=== PATIENT | male | born 1970 | race Hispanic/Latino ===

== ENCOUNTER 2016-12-17 17:36 | Emergency (ER) | payer OTHER ==
[~2016-12-17] VITALS: Ht 175.3 cm; Wt 90.5 kg
[2016-12-17 17:51] VITALS: BP 120/75; PULSE 81; RESP 18; O2SAT 94
--- NOTE | 2016-12-17 18:57 | ED.REPORT ---
HPI-Eye Problem Date of Service Dec 17, 2016 ED Provider: Dr. Hood Pt is a 46 year old male with a hx of left eye surgery 3 days ago as preparation for a prosthetic eye presenting to the ED complaining of pain and bleeding from his left eye. Pt has a pressure dressing on his left eye. He has an appointment at [facility] in 3 days. He spoke to [facility] today and they advised the pt to continue taking his medication and to come in to the ER for a wound redressing. Nursing Notes Stated Complaint: LEFT EYE BLEEDING, HAD SURGERY 12/15/15 Chief Complaint: Eye Nursing Notes Reviewed: Yes Allergies: Coded Allergies: No Known Allergies (Verified Allergy, Severe, 09/02/07) General Time Seen by MD: 18:57 Chief Complaint Left eye affected Hx Obtained From: Patient Arrived By: Walk-in Sudden in Onset?: No Onset Occurred: 5 - 8 hours ago Symptom Duration: Since onset Progression Since Onset: Constant Location: : Eye left Quality: Painful Severity: Current: Mild Severity: Maximum: Moderate Related History: Reports: Eye surgery (3 days ago) Recent Healthcare: No recent hospitalization, Recent doctor visit, Previous surgery Similar Sx Previous: No Past Medical History Past Medical History denies Past Surgical History Left eye surgery preparation for prosthetic 12/15/2016 Reports: Appendectomy Smoking History Unknown if Ever Smoker Ambulatory Status Independent Review of Systems Eyes: Reports: Discharge left, Eye pain left Complete sys rev & neg: except as marked. Respiratory: Denies: Shortness of breath, Wheezing Physical Exam Initial Vital Signs Vital Signs (First) Date Time Temp Pulse Resp B/P Pulse Ox O2 Delivery O2 Flow Rate FiO2 12/17/16 17:51 36.9 81 18 120/75 94 Room Air Initial VS: Reviewed General / Const: Well-developed, Well-nourished ENT: Mucous membranes moist, Conjunctiva normal, No scleral icterus Neck: Supple, Non-tender, Full range of motion Respiratory: No respiratory distress Abdomen / GI: No distention Extremities: Vascular intact, Neuro intact, No swelling, No tenderness Skin: Warm, Dry, No cyanosis Neurologic: Alert, Oriented, Nonfocal Psychiatric: Mood/affect normal, Behavior normal, Normal thought content Head / Eyes: Atraumatic Pressure dressing over left eye. No active bleeding, some bruising. Doesn't feel warm. Re-Eval/Medical Decision Re-Evaluation/Progress : Time of Eval: 19:13 Patient Status: Condition improved Re-Evaluation/Progress Note: Discussed plan for discharge. Pt understands and agrees. Counseled Regarding: Diagnosis, Lab results, Need for follow-up, When/why to return to ED Discharge & Departure Primary Impression: Visit for wound check Disposition: Home Discharge Condition All VS Reviewed: Yes Condition: Improved Additional Instructions: We checked L eye. No active bleeding, does not appear to be infected. Pressure dressing re-applied. Follow up at [facility] in 2 days as planned. Referrals: John Gonzalez MD (PCP) Scribe Attestation Portions of this note were transcribed by Mary Irby. I, Dr. Hood personally performed the history, physical exam and medical decision-making; I reviewed and confirmed the accuracy of the information in the transcribed note. Signed by : Tripp Woods, 12/17/2015 and 1913. copies to: John Gonzalez MD, Donald L MD Dec 17, 2016 18:57 MARY IRBY Dec 17, 2016 19:09
[2016-12-17 19:17] VITALS: BP 126/88; PULSE 87; O2SAT 96
[2016-12-17 19:19] VITALS: BP 126/88; PULSE 87; O2SAT 96
== END 2016-12-17 19:20 | disposition home or self-care (01) ==
LOC: SED 17:36
DX: Z48.01 Encounter for change or removal of surgical wound dressing (principal)

== ENCOUNTER 2017-01-11 09:04 | Emergency (ER) | payer OTHER ==
[~2017-01-11] VITALS: Ht 175.3 cm; Wt 90.5 kg
[2017-01-11 09:09] VITALS: BP 135/82; PULSE 90; RESP 16; O2SAT 97
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
[2017-01-11] MEDS ORDERED: HYDROcodone-APAP 10-325 mg PO ONE (10:15)
--- NOTE | 2017-01-11 10:18 | DRSVH ---
PROCEDURE: CT BRAIN WITHOUT CONTRAST ([id number]) INDICATIONS: headache, left arm numbness TECHNIQUE: Noncontrast 4.5 mm thick angled axial sections acquired from the foramen magnum to the vertex, with c oronal reformats. COMPARISON: None. FINDINGS: Image quality: Excellent. CSF spaces: Basal cisterns are patent. No extra-axial fluid collections. Ventricles are normal in size and shape. Brain: No intracranial hemorrhage, mass, or mass effect. Chin-white matter interface is preserved. Skull and face: Calvarium and visualized facial bones appear intact. There is a prosthetic left toyin be with mild left periorbital soft tissue swelling. There is mild intraconal fat stranding in the ri ght orbit as well as mild thickening of the medial and superior left rectus muscles. No discrete int raorbital fluid collection identified. Sinuses: Visualized sinuses and mastoids are clear. IMPRESSION: 1. No acute intracranial abnormality. 2. Prosthetic left globe with intraconal fat stranding within the left orbit with and thickening of the medial and superior rectus muscles. The findings may represent postsurgical changes but may also reflect infection. Recommend correlation clinically. No discrete intraorbital fluid collections to suggest an abscess. Dictated by: Zohaib Torres M.D. on 01/11/2017 at 10:12 Approved by: Zohaib Torres M.D. on 01/11/2017 at 10:16
[2017-01-11] MEDS ORDERED: [UNRECOGNIZED DRUG - OTHER] OD (10:23)
[2017-01-11] MEDS ORDERED: IBUP800T28 PO (10:41)
[2017-01-11 10:44] VITALS: BP 124/77; PULSE 79; RESP 16; O2SAT 96
== END 2017-01-11 10:46 | disposition home or self-care (01) ==
LOC: SED 09:04
DX: H57.12 Ocular pain, left eye (principal); H57.9 Unspecified disorder of eye and adnexa; S05.6 Penetrating wound without foreign body of eyeball; W27 Contact with nonpowered hand tool; Y92.9 Unspecified place or not applicable; Y93.89 Activity, other specified; Y99.8 Other external cause status; E11.9 Type 2 diabetes mellitus without complications; R51 Headache; R20.2 Paresthesia of skin; H53.8 Other visual disturbances; Z97.0 Presence of artificial eye